=== PATIENT | male | born 1970 | race African-American/Black ===

== ENCOUNTER 2018-07-23 08:12 | Emergency (ER) | payer MEDICAID ==
[~2018-07-23] VITALS: Ht 165.1 cm; Wt 64.0 kg
[2018-07-23] MEDS ORDERED: ACETAMINOPHEN 500MG TABLET PO ONE (09:15)
[2018-07-23 10:03] VITALS: BP 119/65
== END 2018-07-23 10:05 | disposition home or self-care (01) ==
LOC: ER 08:12
DX: T14.8XXA Other injury of unspecified body region, initial encounter (principal); F12.10 Cannabis abuse, uncomplicated; V89.2XXA Person injured in unspecified motor-vehicle accident, traffic, initial encounter; Y93.89 Activity, other specified; Y92.89 Other specified places as the place of occurrence of the external cause; Y99.8 Other external cause status; Z88.0 Allergy status to penicillin; Z98.890 Other specified postprocedural states
CPT/HCPCS: 99283

== ENCOUNTER 2020-02-23 20:39 | Emergency (ER) | payer MEDICAID, OTHER ==
[~2020-02-23] VITALS: Ht 167.6 cm; Wt 59.0 kg
[2020-02-23] MEDS ORDERED: ACETAMINOPHEN WITH CODEINE 300/30MG TABLET PO ONE (21:00)
[2020-02-23 21:45] VITALS: BP 121/71
== END 2020-02-23 21:45 | disposition home or self-care (01) ==
LOC: ER 20:39
DX: S80.12XA Contusion of left lower leg, initial encounter (principal); F12.10 Cannabis abuse, uncomplicated; Z88.0 Allergy status to penicillin; Z98.890 Other specified postprocedural states; V29.9XXA Motorcycle rider (driver) (passenger) injured in unspecified traffic accident, initial encounter; Y93.55 Activity, bike riding; Y92.410 Unspecified street and highway as the place of occurrence of the external cause; Y99.8 Other external cause status
CPT/HCPCS: 73590; 99283

== ENCOUNTER 2020-08-01 09:40 | Emergency (ER) | payer MEDICAID, OTHER ==
[~2020-08-01] VITALS: Ht 172.7 cm; Wt 77.0 kg
[2020-08-01] MEDS ORDERED: KETOROLAC 15MG/ML VIAL IV ONE (10:15)
[2020-08-01] MEDS ORDERED: BACITRACIN ZINC OINT UDPKT TOP ONE (10:30)
[2020-08-01] MEDS ORDERED: TETANUS, DIPHTHERIA, PERTUSSIS VAC/PF 0.5ML (>7YR OLD) IM ONE (10:30)
[2020-08-01] MEDS ORDERED: LIDOCAINE HCL/EPINEPHRINE 1%-EPI 1:100,000 10 ML VIAL IJ ONE (10:30)
[2020-08-01] MEDS ORDERED: HYDR-4346 MT (11:00)
[2020-08-01] MEDS ORDERED: VANCOMYCIN 1 G PREMIX 200 ML IV SCH (11:45)
[2020-08-01] MEDS ORDERED: MORPHINE SULFATE 2 MG/ML CPJ (NOT FOR IM USE) IV ONE (11:45)
[2020-08-01 13:30] VITALS: BP 112/78
== END 2020-08-01 13:31 | disposition left against medical advice (07) ==
LOC: ER 09:40
DX: S62.637B Displaced fracture of distal phalanx of left little finger, initial encounter for open fracture (principal); Z88.0 Allergy status to penicillin; Z98.890 Other specified postprocedural states; V29.9XXA Motorcycle rider (driver) (passenger) injured in unspecified traffic accident, initial encounter; Y93.89 Activity, other specified; Y92.89 Other specified places as the place of occurrence of the external cause; Y99.8 Other external cause status
CPT/HCPCS: 29130; 73130; 90471; 90715; 96374; 96375; 99284; J1885; J2270; J3370; J3490